=== PATIENT | female | born 1965 | race African-American/Black ===

== ENCOUNTER 2017-02-11 20:17 | Emergency (ER) | payer OTHER ==
[~2017-02-11] VITALS: Ht 167.6 cm; Wt 124.3 kg
--- NOTE | ~2017-02-11 | EKG ---
[place] [address] [address] [facility] [place] [address] ELECTROCARDIOGRAM REPORT Name: BRITTNI ALICEA Room #: DEP [facility]#: [id number] Admission: 02/11/17 Attend Phys: Discharge: 02/12/17 Date of : 61 Report #: [id number] THIS REPORT FOR: //name// [facility] ED Test Date: 2017-02-11 Test Time: 20:35:06 Pat Name: BRITTNI ALICEA Department: Room: Gender: F Supervisory Investigative Specialist: [id number] : 1965 Requested By: Ernst Petersen Order Number: [id number] MD: Nick Miranda Measurements Intervals [place] Rate: 76 P: 33 NM: 168 QRS: -6 QRSD: 104 T: -14 QT: 380 QTc: 428 Interpretive Statements Sinus rhythm Borderline T abnormalities, inferior leads Compared to ECG 09/16/2016 20:00:40 No significant changes Electronically Signed On 02-12-2017 17:08:26 CDT by Nick Miranda [email or web address] <ELECTRONICALLY SIGNED> By: Nick Miranda MD, [facility] 02/12/17 1708 34 34 Nick Miranda MD, FACC /EPI
[~2017-02-11 20:17] MED LIST: FIBER TABS625 MG PO; FLEET ENEMA118 ML RC; FLEXERIL PO; HYDROCHLOROTHIA25 M1 PO; HYDROCODON-ACE1 EAC7 PO; IBUPROFEN 600600 M1 PO; K-DUR 20 MEQ T20 MEQ PO; KLOR-CON 1010 MEQ PO; LISINOPRIL10 MG PO; LORTAB 5 MG/5001 TA1 PO; METOCLOPRAMIDE10 MG PO; MOBIC15 MG PO; NABUMETONE 750750 M1 PO; NAPROSYN125 MG/5 M PO; NAPROSYN500 MG PO; PERCOCET 5-3251 EACH PO; PREDNISONE 10 M10 M1 PO; REGLAN 10 MG TA10 M1 PO; RELAFEN750 MG PO; ROBAXIN 750 MG750 M1 PO; [UNRECOGNIZED DRUG - OTHER]; [UNRECOGNIZED DRUG - REMARK]
[2017-02-11 21:23] LABS: ABSOLUTE NEUTROPHILS 2.4 thou/uL (1.4-8.2); BASOPHILS 0.7 % (0.0-2.0); EOSINOPHILS 0.8 % (0.0-3.0); HEMATOCRIT 40.2 % (37.0-47.0); HEMOGLOBIN 13.5 gm/dL (12.0-15.0); LYMPHOCYTES 55.2 % (24.0-44.0); MCH 27.4 pg (26.0-34.0); MCHC 33.5 g/dL (28.0-37.0); MCV 81.9 fL (80.0-100.0); MONOCYTES 7.6 % (1.0-8.0); PLATELET COUNT 228 thou/uL (150-400); POLYS 35.7 % (36.0-66.0); RBC 4.91 mil/uL (4.20-5.00); RDW 14.4 % (10.5-14.5); WBC 6.7 thou/uL (4.0-11.0)
[2017-02-11 21:24] LABS: MANUAL DIFF NO
[2017-02-11 21:31] LABS: CALCIUM 9.5 mg/dL (8.5-10.1); CREATININE 1.1 mg/dL (0.6-1.0); POTASSIUM 3.4 mmol/L (3.5-5.1)
[2017-02-11 21:40] LABS: ALBUMIN 3.8 g/dL (3.4-5.0); DIRECT BILIRUBIN 0.1 mg/dL (<0.1-0.3); TOTAL BILIRUBIN 0.5 mg/dL (<0.1-1.0); TOTAL PROTEIN 7.9 g/dL (6.4-8.2); TROPONIN-I 0.06 ng/mL (<0.04-0.07)
[2017-02-11] MEDS ORDERED: TRAMADOL 50 MG50 MG PO (23:31)
[2017-02-11] MEDS ORDERED: ZOFRAN ODT4 MG DISSOLVE (23:31)
== END 2017-02-12 00:03 | disposition home or self-care (01) ==
LOC: ER 20:17
PROVIDERS: Emergency Medicine
DX: R10.13 Epigastric pain (principal); R11.0 Nausea; I10 Essential (primary) hypertension; E66.01 Morbid (severe) obesity due to excess calories; F10.99 Alcohol use, unspecified with unspecified alcohol-induced disorder; Z68.41 Body mass index [BMI] 40.0-44.9, adult; Z90.710 Acquired absence of both cervix and uterus; Z87.891 Personal history of nicotine dependence